=== PATIENT | male | born 1945 | race African-American/Black ===

== ENCOUNTER 2022-07-07 09:47 | Inpatient (IN) | payer MEDICARE, MEDICAID ==
[~2022-07-07] VITALS: Ht 180.3 cm; Wt 90.3 kg
[~2022-07-07 09:47] MED LIST: ALPR2TAB2 PO; ASPI-1497 PO; ATAZ300C PO; CARI350T27 PO; CODE118S2 PO; DARU400T2 PO; EMTR1TAB11 PO; ENAL-75 PO; HYDR25TA PO; OXYC-582 PO; RITO100T PO; RIVA1TAB PO; WARF1TAB46
[2022-07-07 10:05] LABS: HEMATOCRIT. 38.8 % (42.0-52.0); HEMOGLOBIN. 12.9 g/dL (14.0-18.0); MEAN CORPUSCULAR HEMOGLOBIN 31.5 pg (28.0-32.0); MEAN CORPUSCULAR VOLUME 94.7 fL (80.0-94.0); MEAN PLATELET VOLUME 8.3 fl (7.4-10.4); PLATELET 178 x1000/uL (130-400); RED BLOOD CELL COUNT 4.09 mill/uL (4.7-6.1); RED CELL DISTRIBUTION WIDTH 16.8 % (11.6-14.6)
[2022-07-07 10:13] LABS: CHLORIDE 112 mEq/L (98-107)
[2022-07-07] MEDS: ENALAPRIL 1.25MG/ML VIAL 1ML IV NR ×2 (10:30→17:38)
[2022-07-07] MEDS ORDERED: ENALAPRIL 2.5MG/2ML VIAL 2ML IV ONE (10:30)
[2022-07-07] MEDS ORDERED: FUROSEMIDE 40MG/4ML VIAL IVP ONE (10:30)
[2022-07-07] MEDS ORDERED: ACETAMINOPHEN 325MG TABLET PO PRN ×2 (12:45)
[2022-07-07] MEDS ORDERED: IPRATROPIUM/ALBUTEROL 0.5-3(2.5)MG/3ML NEB HHN PRN (12:45)
[2022-07-07] MEDS ORDERED: LORAZEPAM 0.5MG TABLET PO PRN (12:45)
[2022-07-07] MEDS ORDERED: ONDANSETRON HCL 4MG/2ML INJ IV PRN (12:45)
[2022-07-07] MEDS ORDERED: CLONIDINE 0.1MG TABLET PO PRN (12:45)
[2022-07-07] MEDS ORDERED: ENOXAPARIN 30MG/0.3ML SYR SUBCUT SCH (13:00)
[2022-07-07] MEDS ORDERED: METHYLPREDNISOLONE SOD SUCC 125 MG/2 ML VIAL IV NR (13:00)
[2022-07-07 13:24] LABS: PLATELET ESTIMATE NORMAL
[2022-07-07 13:31] LABS: CHLORIDE 109 mEq/L (98-107)
[2022-07-07] MEDS: FAMOTIDINE 20MG/2ML VIAL IV SCH ×2 (13:33→20:35)
[2022-07-07 13:41] LABS: D-DIMER 4.97 mg/L FEU (<0.50); INR 1.2; PROTHROMBIN TIME 12.4 sec (9.6-11.0)
[2022-07-07 14:03] LABS: PROSTRATE SPECIFIC AG TOTAL 1.14 ng/mL (0.0-4.0)
[2022-07-07 14:09] LABS: VITAMIN B12 SERUM 427 pg/mL (211-911)
[2022-07-07] MEDS ORDERED: APIX5TAB PO (14:29)
[2022-07-07 15:00] LABS: CREATINE KINASE MB FRACTION 1.6 ng/mL (0.5-3.6)
[2022-07-07 15:04] LABS: BG BASE EXCESS 1.7 mmol/L (-2.0-2.0); BG DEOXYHEMOGLOBIN 2.5 % (0.0-5.0); BG FRACTION INSPIRED OXYGEN 28; BG HCO3 ACT 24.8 mmol/L (22.0-26.0); BG METHEMOGLOBIN 0.3 % (0.0-1.5); BG OXYGEN SATURATION 97.5 % (92.0-98.5); BG OXYHEMOGLOBIN 96.2 % (94.0-97.0); BG PCO2 34.4 mmHg (35.0-45.0); BG PH 7.476 (7.350-7.450); BG PO2 94.4 mmHg (75.0-100.0); BG SAMPLE SITE RIGHT RADIAL; BG TOTAL HEMOGLOBIN 13.7 g/dL (12.0-18.0); BG VENT MODE NASAL CANNULA
[2022-07-07] MEDS ORDERED: ENOXAPARIN 80MG/0.8ML SYR SUBCUT NR (16:00)
[2022-07-07 18:11] LABS: TOTAL IRON BINDING CAPACITY 255 ug/dL (250-450)
[2022-07-07 20:10] VITALS: BP 155/97
[2022-07-07 20:15] VITALS: BP 155/97
[2022-07-07] MEDS: FUROSEMIDE 40MG/4ML VIAL IVP SCH (20:36)
[2022-07-08] VITALS: BP 124/75
[2022-07-08 01:24] LABS: CREATINE KINASE MB FRACTION 1.4 ng/mL (0.5-3.6)
[2022-07-08 04:00] VITALS: BP 135/97
[2022-07-08] MEDS: FUROSEMIDE 40MG/4ML VIAL IVP SCH ×2 (06:42→18:00)
[2022-07-08] MEDS: ENOXAPARIN 100MG/ML SYR SUBCUT SCH ×2 (06:42→18:01)
[2022-07-08 07:41] LABS: BASOPHILS % 0.3 % (0.0-2.0); EOSINOPHILS % 0.1 % (0.0-5.0); HEMOGLOBIN. 12.9 g/dL (14.0-18.0); LYMPHOCYTES % 22.5 % (20.0-50.0); MEAN CORPUSCULAR HEMOGLOBIN 31.2 pg (28.0-32.0); MEAN CORPUSCULAR VOLUME 99.1 fL (80.0-94.0); MONOCYTES % 9.6 % (2.0-8.0); NEUTROPHILS % 67.5 % (40.0-76.0); PLATELET 174 x1000/uL (130-400); RED BLOOD CELL COUNT 4.14 mill/uL (4.7-6.1); RED CELL DISTRIBUTION WIDTH 18.2 % (11.6-14.6)
[2022-07-08 07:45] LABS: CHLORIDE 110 mEq/L (98-107)
[2022-07-08 08:00] VITALS: BP 134/89
[2022-07-08 08:12] LABS: HDL CHOLESTEROL 65 mg/dL (40-59); LDL CHOLESTEROL 100 mg/dL (5-100); T4 FREE 1.38 ng/dL (0.76-1.46)
[2022-07-08] MEDS: ASPIRIN 81MG EC TABLET PO SCH (08:44)
[2022-07-08] MEDS: SPIRONOLACTONE 25MG TABLET PO SCH (08:44)
[2022-07-08] MEDS: LOSARTAN POTASSIUM 25 MG TABLET PO SCH (08:45)
[2022-07-08] MEDS: FAMOTIDINE 20MG/2ML VIAL IV SCH (08:54)
[2022-07-08] MEDS ORDERED: MEDICATION NOT ON FORMULARY EA (Emtricitabine/Tenofovir (Truvada 200 Mg-300 Mg Tablet) 1 PO SCH (09:00)
[2022-07-08] MEDS ORDERED: DARUNAVIR ETHANOLATE 800 MG PO SCH (09:00)
[2022-07-08] MEDS: RITONAVIR 100 MG TABLET PO SCH (09:00)
[2022-07-08] MEDS ORDERED: FUROSEMIDE 40MG/4ML VIAL IVP SCH (09:00)
[2022-07-08] MEDS ORDERED: ATAZANAVIR SULFATE 300 MG PO SCH (09:00)
[2022-07-08] MEDS ORDERED: DEXTROSE 50% WATER 50ML SYRINGE IV ONE (09:15)
[2022-07-08] MEDS ORDERED: INSULIN REGULAR (HUMULIN R) 300UNITS/3ML VIAL IV ONE (09:15)
[2022-07-08] MEDS ORDERED: ALBUTEROL (0.083%) 2.5MG/3ML NEB HHN ONE (09:15)
[2022-07-08 09:38] LABS: CHLORIDE 108 mEq/L (98-107)
[2022-07-08 12:00] VITALS: BP 125/89
[2022-07-08 16:00] VITALS: BP 132/94
[2022-07-08 20:00] VITALS: BP 136/91
[2022-07-08] MEDS: FAMOTIDINE 20MG TABLET PO SCH (20:58)
[2022-07-09] VITALS: BP 135/98
[2022-07-09 04:00] VITALS: BP 152/88
[2022-07-09] MEDS: IPRATROPIUM/ALBUTEROL 0.5-3(2.5)MG/3ML NEB HHN SCH ×5 (04:26→20:21)
[2022-07-09] MEDS: BUDESONIDE 0.5MG/2ML NEB HHN SCH ×3 (04:26→20:20)
[2022-07-09] MEDS: ENOXAPARIN 100MG/ML SYR SUBCUT SCH ×2 (06:30→18:52)
[2022-07-09] MEDS: FUROSEMIDE 40MG/4ML VIAL IVP SCH ×2 (06:32→18:52)
[2022-07-09 07:51] LABS: CHLORIDE 105 mEq/L (98-107); PHOSPHORUS 3.2 mg/dL (2.5-4.9)
[2022-07-09 07:57] LABS: BASOPHILS % 0.9 % (0.0-2.0); EOSINOPHILS % 0.9 % (0.0-5.0); HEMATOCRIT. 41.3 % (42.0-52.0); HEMOGLOBIN. 14.1 g/dL (14.0-18.0); LYMPHOCYTES % 31.5 % (20.0-50.0); MEAN CORPUSCULAR VOLUME 93.5 fL (80.0-94.0); MEAN PLATELET VOLUME 8.8 fl (7.4-10.4); MONOCYTES % 11.7 % (2.0-8.0); PLATELET 231 x1000/uL (130-400); RED BLOOD CELL COUNT 4.42 mill/uL (4.7-6.1); RED CELL DISTRIBUTION WIDTH 16.4 % (11.6-14.6)
[2022-07-09 08:45] VITALS: BP 127/90
[2022-07-09] MEDS: SPIRONOLACTONE 25MG TABLET PO SCH (08:58)
[2022-07-09] MEDS: FAMOTIDINE 20MG TABLET PO SCH ×2 (08:58→21:42)
[2022-07-09] MEDS: ASPIRIN 81MG EC TABLET PO SCH (08:59)
[2022-07-09] MEDS: LOSARTAN POTASSIUM 25 MG TABLET PO SCH (08:59)
[2022-07-09] MEDS: RITONAVIR 100 MG TABLET PO SCH (09:00)
[2022-07-09] MEDS ORDERED: METOPROLOL TARTRATE 25MG TABLET PO SCH (09:15)
[2022-07-09 10:11] LABS: ABSOLUTE LYMPHOCYTES 0.7 x10E3/uL (0.7-3.1); ABSOLUTE MONOCYTES 0.1 x10E3/uL (0.1-0.9); ABSOLUTE NEUTROPHILS 2.5 x10E3/uL (1.4-7.0); BASOPHILS 0 % (Not Estab.); HEMATOCRIT 43.6 % (37.5-51.0); HEMATOLOGY COMMENT Note: (.); HEMOGLOBIN 14.4 g/dL (13.0-17.7); IMMATURE GRANULOCYTES 0 % (Not Estab.); LYMPHOCYTES 21 % (Not Estab.); MEAN CORPUSCULAR HEMOGLOBIN 31.6 pg (26.6-33.0); MEAN CORPUSCULAR VOLUME 96 fL (79-97); MONOCYTES 3 % (Not Estab.); NEUTROPHILS 76 % (Not Estab.); PLATELETS 200 x10E3/uL (150-450); RBC 4.55 x10E6/uL (4.14-5.80); RED CELL DISTRIBUTION WIDTH 14.4 % (11.6-15.4); WBC 3.3 x10E3/uL (3.4-10.8)
[2022-07-09 12:45] VITALS: BP 126/84
[2022-07-09 13:06] LABS: % CD 3 POS. LYMPHOCYTES 69.4 % (57.5-86.2); % CD 4 POS. LYMPHOCYTES 13.1 % (30.8-58.5); % CD 8 POS. LYMPH 55.2 % (12.0-35.5); ABSOLUTE CD 3 486 /uL (622-2402); ABSOLUTE CD 4 HELPER 92 /uL (359-1519); ABSOLUTE CD 8 SUPPRESSOR 386 /uL (109-897); CD4/CD8 RATIO 0.24 (0.92-3.72)
[2022-07-09 16:36] VITALS: BP 129/92
[2022-07-09] MEDS: METOPROLOL TARTRATE 50MG TABLET PO SCH ×2 (19:04→21:42)
[2022-07-09 20:00] VITALS: BP 106/57
[2022-07-10] VITALS: BP 103/42
[2022-07-10] MEDS: IPRATROPIUM/ALBUTEROL 0.5-3(2.5)MG/3ML NEB HHN SCH ×4 (00:12→12:36)
[2022-07-10 04:00] VITALS: BP 116/88
[2022-07-10] MEDS: FUROSEMIDE 40MG/4ML VIAL IVP SCH (06:01)
[2022-07-10] MEDS: ENOXAPARIN 100MG/ML SYR SUBCUT SCH (06:02)
[2022-07-10 07:30] VITALS: BP 111/81
[2022-07-10 08:16] LABS: HEMATOCRIT. 43.1 % (42.0-52.0); MEAN CORPUSCULAR HEMOGLOBIN 32.4 pg (28.0-32.0); MEAN CORPUSCULAR VOLUME 92.9 fL (80.0-94.0); MEAN PLATELET VOLUME 8.4 fl (7.4-10.4); PLATELET 247 x1000/uL (130-400); RED BLOOD CELL COUNT 4.64 mill/uL (4.7-6.1); RED CELL DISTRIBUTION WIDTH 16.3 % (11.6-14.6)
[2022-07-10] MEDS: BUDESONIDE 0.5MG/2ML NEB HHN SCH (08:45)
[2022-07-10] MEDS: LOSARTAN POTASSIUM 25 MG TABLET PO SCH (09:00)
[2022-07-10] MEDS: METOPROLOL TARTRATE 50MG TABLET PO SCH (09:00)
[2022-07-10 09:14] LABS: CHLORIDE 105 mEq/L (98-107)
[2022-07-10] MEDS ORDERED: FURO-151 MT (09:18)
[2022-07-10] MEDS ORDERED: METO-385 MT (09:20)
[2022-07-10] MEDS ORDERED: SPIR25TA PO (09:20)
[2022-07-10] MEDS ORDERED: LOSA25TA3 PO (09:20)
[2022-07-10] MEDS: ASPIRIN 81MG EC TABLET PO SCH (10:49)
[2022-07-10] MEDS: SPIRONOLACTONE 25MG TABLET PO SCH (10:49)
[2022-07-10] MEDS: FAMOTIDINE 20MG TABLET PO SCH (10:49)
[2022-07-10 12:00] VITALS: BP 92/68
[2022-07-10] MEDS ORDERED: AMIODARONE HCL 150 MG in DEXT 5% WATER 100 ML IV NR (14:00)
[2022-07-10] MEDS ORDERED: DIGOXIN 500MCG/2ML AMP IV NR (14:45)
[2022-07-10 15:13] VITALS: BP 94/62
[2022-07-10] MEDS ORDERED: FUROSEMIDE 40MG TABLET PO SCH (17:15)
[2022-07-10 22:35] LABS: PLATELET ESTIMATE NORMAL
[2022-07-13 04:08] LABS: *HIV-1 RNA BY PCR 11170 copies/mL (.)
== END 2022-07-10 15:30 | disposition home or self-care (01) | DRG 291 ==
LOC: ER 10:05 → 3WST 10:27 → EDBEDREQ 10:34 → ENRESERV 19:39
PROVIDERS: ADMIT Internal Medicine; ATTEND Internal Medicine
DX: I11.0 Hypertensive heart disease with heart failure (principal); I50.23 Acute on chronic systolic (congestive) heart failure; I24.9 Acute ischemic heart disease, unspecified; I48.92 Unspecified atrial flutter; D64.9 Anemia, unspecified; H40.9 Unspecified glaucoma; J44.9 Chronic obstructive pulmonary disease, unspecified; D72.819 Decreased white blood cell count, unspecified; E03.9 Hypothyroidism, unspecified; I48.91 Unspecified atrial fibrillation; Z21 Asymptomatic human immunodeficiency virus [HIV] infection status; I27.20 Pulmonary hypertension, unspecified; Z87.891 Personal history of nicotine dependence; Z88.0 Allergy status to penicillin; Z88.2 Allergy status to sulfonamides; Z95.810 Presence of automatic (implantable) cardiac defibrillator; Z99.81 Dependence on supplemental oxygen; Z91.199 Patient's noncompliance with other medical treatment and regimen due to unspecified reason
CPT/HCPCS: 36415; 36600; 71045; 80048; 80053; 80061; 82375; 82550; 82553; 82607; 82728; 82746; 82805; 83036; 83540; 83550; 83605; 83735; 83880; 84100; 84145; 84153; 84439; 84443; 84481; 84484; 85025; 85379; 86359; 86360; 87536; 93005; 93306; 93970; 94640; 97162; 99285; J0282; J1160; J1650; J1940; J2930; J3490; J7060; J7626; G0103

== ENCOUNTER 2022-08-25 05:03 | Inpatient (IN) | payer MEDICARE, MEDICAID ==
[~2022-08-25] VITALS: Ht 175.3 cm; Wt 95.3 kg
[~2022-08-25 05:03] MED LIST changes: -ALPR2TAB2 PO; +APIX5TAB PO; -CARI350T27 PO; -CODE118S2 PO; -ENAL-75 PO; +FURO-151 MT; -HYDR25TA PO; +LOSA25TA3 PO; +METO-385 MT; -OXYC-582 PO; -RIVA1TAB PO; +SPIR25TA PO; -WARF1TAB46
[2022-08-25 05:39] LABS: BASOPHILS % 0.4 % (0.0-2.0); EOSINOPHILS % 0.5 % (0.0-5.0); HEMATOCRIT. 40.8 % (42.0-52.0); HEMOGLOBIN. 13.3 g/dL (14.0-18.0); MEAN CORPUSCULAR HEMOGLOBIN 30.8 pg (28.0-32.0); MEAN CORPUSCULAR VOLUME 94.7 fL (80.0-94.0); MEAN PLATELET VOLUME 8.4 fl (7.4-10.4); MONOCYTES % 14.1 % (2.0-8.0); PLATELET 197 x1000/uL (130-400); RED BLOOD CELL COUNT 4.31 mill/uL (4.7-6.1); RED CELL DISTRIBUTION WIDTH 15.8 % (11.6-14.6)
[2022-08-25] MEDS ORDERED: FUROSEMIDE 40MG/4ML VIAL IVP ONE (05:45)
[2022-08-25 05:47] LABS: INR 1.3; PROTHROMBIN TIME 13.5 sec (9.6-11.0)
[2022-08-25 05:52] LABS: CHLORIDE 110 mEq/L (98-107)
[2022-08-25 10:20] VITALS: BP 150/90
[2022-08-25] MEDS ORDERED: CARVEDILOL 12.5MG TABLET PO NR (10:45)
[2022-08-25] MEDS ORDERED: ACETAMINOPHEN 325MG TABLET PO PRN (10:45)
[2022-08-25] MEDS ORDERED: ONDANSETRON HCL 4MG/2ML INJ IV PRN (10:45)
[2022-08-25] MEDS ORDERED: PRED5DRO22 OP (11:44)
[2022-08-25] MEDS ORDERED: OCUFLX EACHEYE (11:44)
[2022-08-25 12:00] VITALS: BP 142/104
[2022-08-25] MEDS ORDERED: METOLAZONE 2.5MG TABLET PO NR (14:45)
[2022-08-25] MEDS: SPIRONOLACTONE 25MG TABLET PO SCH (15:25)
[2022-08-25 16:00] VITALS: BP 114/77
[2022-08-25] MEDS: FUROSEMIDE 40MG/4ML VIAL IVP SCH (17:35)
[2022-08-25] MEDS: ENOXAPARIN 100MG/ML SYR SUBCUT SCH (17:36)
[2022-08-25 20:00] VITALS: BP 117/83
[2022-08-25] MEDS: CARVEDILOL 12.5MG TABLET PO SCH (21:43)
[2022-08-26] VITALS: BP 98/68
[2022-08-26 03:16] LABS: *AMPHETAMINES SCREEN URINE NEGATIVE (NEGATIVE); *BARBITURATES SCREEN URINE NEGATIVE (NEGATIVE); *BENZODIAZEPINES SCREEN URINE NEGATIVE (NEGATIVE); *COCAINE SCREEN URINE PRESUMTIVE POSITIVE (NEGATIVE); CANNABINOID URINE SCREEN NEGATIVE (NEGATIVE); METHADONE URINE SCREEN NEGATIVE (NEGATIVE); OPIATES URINE SCREEN NEGATIVE (NEGATIVE); PHENCYCLIDINE URINE SCREEN NEGATIVE (NEGATIVE)
[2022-08-26 04:00] VITALS: BP 100/54
[2022-08-26] MEDS: ENOXAPARIN 100MG/ML SYR SUBCUT SCH ×2 (06:09→17:58)
[2022-08-26 08:00] VITALS: BP 127/80
[2022-08-26] MEDS: FUROSEMIDE 40MG/4ML VIAL IVP SCH (09:31)
[2022-08-26] MEDS: SPIRONOLACTONE 25MG TABLET PO SCH (09:32)
[2022-08-26] MEDS: CARVEDILOL 12.5MG TABLET PO SCH (09:32)
[2022-08-26] MEDS: METOPROLOL TARTRATE 50MG TABLET PO SCH ×2 (10:00→21:38)
[2022-08-26] MEDS ORDERED: METHYLPREDNISOLONE SOD SUCC 125 MG/2 ML VIAL IV NR (10:45)
[2022-08-26] MEDS ORDERED: IPRATROPIUM/ALBUTEROL 0.5-3(2.5)MG/3ML NEB HHN PRN (10:45)
[2022-08-26 12:00] VITALS: BP 123/72
[2022-08-26] MEDS: IPRATROPIUM/ALBUTEROL 0.5-3(2.5)MG/3ML NEB HHN SCH ×3 (12:49→20:16)
[2022-08-26] MEDS ORDERED: METOLAZONE 2.5MG TABLET PO NR (14:15)
[2022-08-26 16:00] VITALS: BP 128/87
[2022-08-26] MEDS: FUROSEMIDE 100MG/10ML VIAL IVP SCH (17:57)
[2022-08-26] MEDS: METHYLPREDNISOLONE SOD SUCC 40 MG/ML VIAL IV SCH (18:55)
[2022-08-26 20:00] VITALS: BP 119/89
[2022-08-26] MEDS: ATORVASTATIN CALCIUM 40MG TABLET PO SCH (21:38)
[2022-08-27] VITALS: BP 132/85
[2022-08-27] MEDS: IPRATROPIUM/ALBUTEROL 0.5-3(2.5)MG/3ML NEB HHN SCH ×6 (00:42→20:27)
[2022-08-27 04:00] VITALS: BP 108/69
[2022-08-27 05:33] LABS: HEMATOCRIT 41.1 % (42.0-52.0); MEAN CORPUSCULAR HEMOGLOBIN 31.6 pg (28.0-32.0); MEAN CORPUSCULAR VOLUME 92.3 fL (80.0-94.0); PLATELET 210 x1000/uL (130-400); RED BLOOD CELL COUNT 4.45 mill/uL (4.7-6.1); RED CELL DISTRIBUTION WIDTH 15.7 % (11.6-14.6)
[2022-08-27] MEDS: ENOXAPARIN 100MG/ML SYR SUBCUT SCH ×2 (06:22→17:08)
[2022-08-27] MEDS: METHYLPREDNISOLONE SOD SUCC 40 MG/ML VIAL IV SCH ×2 (06:23→17:08)
[2022-08-27] MEDS: FUROSEMIDE 100MG/10ML VIAL IVP SCH ×2 (07:21→17:08)
[2022-08-27 08:00] VITALS: BP 131/77
[2022-08-27] MEDS: SPIRONOLACTONE 25MG TABLET PO SCH (09:29)
[2022-08-27] MEDS: METOPROLOL TARTRATE 50MG TABLET PO SCH ×2 (09:29→20:52)
[2022-08-27 12:00] VITALS: BP 113/81
[2022-08-27] MEDS ORDERED: GUAIFENESIN-DM 200MG-20MG/10ML UDC PO PRN (13:30)
[2022-08-27 16:00] VITALS: BP 109/81
[2022-08-27 20:00] VITALS: BP 116/80
[2022-08-27] MEDS ORDERED: METOLAZONE 2.5MG TABLET PO SCH (20:00)
[2022-08-27] MEDS: ATORVASTATIN CALCIUM 40MG TABLET PO SCH (20:51)
[2022-08-28] VITALS: BP 112/83
[2022-08-28] MEDS: IPRATROPIUM/ALBUTEROL 0.5-3(2.5)MG/3ML NEB HHN SCH ×4 (00:11→11:38)
[2022-08-28 04:00] VITALS: BP 116/77
[2022-08-28] MEDS: ENOXAPARIN 100MG/ML SYR SUBCUT SCH (06:16)
[2022-08-28] MEDS: FUROSEMIDE 100MG/10ML VIAL IVP SCH (06:16)
[2022-08-28] MEDS: METHYLPREDNISOLONE SOD SUCC 40 MG/ML VIAL IV SCH (06:16)
[2022-08-28 08:00] VITALS: BP 115/84
[2022-08-28] MEDS: METOPROLOL TARTRATE 50MG TABLET PO SCH (08:49)
[2022-08-28] MEDS: SPIRONOLACTONE 25MG TABLET PO SCH (08:50)
[2022-08-28] MEDS ORDERED: METOLAZONE 2.5MG TABLET PO SCH (09:00)
[2022-08-28 09:07] LABS: % CD 4 POS. LYMPHOCYTES 13.4 % (30.8-58.5); ABSOLUTE CD 3 438 /uL (622-2402); ABSOLUTE CD 4 HELPER 80 /uL (359-1519); ABSOLUTE CD 8 SUPPRESSOR 348 /uL (109-897); ABSOLUTE LYMPHOCYTES 0.6 x10E3/uL (0.7-3.1); ABSOLUTE MONOCYTES 0.1 x10E3/uL (0.1-0.9); ABSOLUTE NEUTROPHILS 1.7 x10E3/uL (1.4-7.0); BASOPHILS 0 % (Not Estab.); CD4/CD8 RATIO 0.23 (0.92-3.72); HEMATOCRIT 45.2 % (37.5-51.0); HEMATOLOGY COMMENT Note: (.); IMMATURE GRANULOCYTES 0 % (Not Estab.); LYMPHOCYTES 24 % (Not Estab.); MEAN CORPUSCULAR HEMOGLOBIN 31.1 pg (26.6-33.0); MEAN CORPUSCULAR HGB CONC. 33.2 g/dL (31.5-35.7); MEAN CORPUSCULAR VOLUME 94 fL (79-97); MONOCYTES 4 % (Not Estab.); NEUTROPHILS 72 % (Not Estab.); RBC 4.83 x10E6/uL (4.14-5.80); RED CELL DISTRIBUTION WIDTH 13.6 % (11.6-15.4); WBC 2.4 x10E3/uL (3.4-10.8)
[2022-08-28] MEDS ORDERED: LIP40 PO (09:35)
[2022-08-28] MEDS ORDERED: METO-539 PO (09:35)
[2022-08-28] MEDS ORDERED: METO2.5T2 PO (09:35)
[2022-08-28] MEDS ORDERED: MED4 MT (09:35)
[2022-08-28 10:34] VITALS: BP 115/84
[2022-08-28 12:00] VITALS: BP 101/61
[2022-09-01 04:10] LABS: *HIV-1 RNA BY PCR 14990 copies/mL (.)
== END 2022-08-28 13:43 | disposition home or self-care (01) | DRG 291 ==
LOC: ER 05:03 → 7EST 09:00 → EDBEDREQ 09:05 → EDBEDREQTM 09:05
PROVIDERS: ADMIT Internal Medicine; ATTEND Internal Medicine
DX: I11.0 Hypertensive heart disease with heart failure (principal); E43 Unspecified severe protein-calorie malnutrition; I50.23 Acute on chronic systolic (congestive) heart failure; I48.92 Unspecified atrial flutter; I24.8 Other forms of acute ischemic heart disease; I48.19 Other persistent atrial fibrillation; J44.1 Chronic obstructive pulmonary disease with (acute) exacerbation; F14.10 Cocaine abuse, uncomplicated; D64.9 Anemia, unspecified; H40.9 Unspecified glaucoma; I42.9 Cardiomyopathy, unspecified; I34.0 Nonrheumatic mitral (valve) insufficiency; I27.20 Pulmonary hypertension, unspecified; Z79.899 Other long term (current) drug therapy; Z99.81 Dependence on supplemental oxygen; Z68.31 Body mass index [BMI] 31.0-31.9, adult; Z95.810 Presence of automatic (implantable) cardiac defibrillator; Z87.891 Personal history of nicotine dependence; Z88.0 Allergy status to penicillin; Z88.2 Allergy status to sulfonamides; Z91.148 Patient's other noncompliance with medication regimen for other reason; Z91.199 Patient's noncompliance with other medical treatment and regimen due to unspecified reason
CPT/HCPCS: 36415; 71045; 80048; 80053; 80305; 83880; 84484; 85025; 85027; 86359; 86360; 87536; 93005; 94640; 99291; J1650; J1940; J2920; J2930